=== PATIENT | male | born 1990 | race Caucasian/White ===

== ENCOUNTER 2018-05-17 10:50 | Emergency (ER) | payer SELFPAY ==
[~2018-05-17] VITALS: Ht 180.3 cm; Wt 86.2 kg
[~2018-05-17 10:50] MED LIST: ACHD5005 PO; AZIT-21 PO; WATER (STERILE) FOR INJECTION 10 ML ONE; ZIPRASIDONE 20 MG INJ (GEODON) VIAL IM ONE
--- OUTSIDE RECORDS SUMMARY | 2018-05-17 10:55 | XMS REPORT | Continuity of Care Document ---
Author Author [facility] Organization [facility] Address Unknown Phone Unavailable Allergies Active Description Code Type Severity Reaction Onset Reported/Identified Relationship to Patient Clinical Status Yes No Known Drug Allergies [id number] Drug Allergy Unknown N/A 12/06/2012 Medications There is no data. 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 01/13/2016 ELMA DO K Ot X58.XXXA EXPOSURE TO OTHER SPECIFIED FACTORS, INI 01/13/2016 PONCE WILLS DOA K Ot Y92.69 OTH INDUSTRIAL AND CONSTRUCTION AREA 01/13/2016 ELMA DO K Ot Y93.89 ACTIVITY, OTHER SPECIFIED 01/13/2016 ELMA DO K Ot Y99.8 OTHER EXTERNAL CAUSE STATUS 01/13/2016 ELMA DO K Ot Z23 ENCOUNTER FOR IMMUNIZATION 01/15/2016 ELMA DO K Ot F17.210 NICOTINE DEPENDENCE, CIGARETTES, UNCOMPL 01/15/2016 ELMA DO K Ot H10.89 OTHER CONJUNCTIVITIS 01/15/2016 ELMA DO K Ot H16.8 OTHER KERATITIS 01/15/2016 ELMA DO K Ot H57.8 OTHER SPECIFIED DISORDERS OF EYE AND ADN 01/15/2016 ELMA DO K Ot 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 Results There is no data. Encounters ACCT No. Visit Date/Time Discharge Status Pt. Type Provider Facility Loc./Unit Complaint [id number] 01/13/2016 20:28:00 01/13/2016 21:15:00 DIS Emergency LISA WILLS DO [facility] ER EYE REDNESS/SWELLING/PAIN [id number] 12/06/2012 02:24:00 12/06/2012 03:23:00 DIS Emergency
[2018-05-17] MEDS ORDERED: TETANUS,DIPTH,PERTUSS P/F (BOOSTRIX) 0.5 ML VIAL IM STA (11:07)
[2018-05-17] MEDS ORDERED: LIDOCAINE 2% 20 ML (XYLOCAINE) VIAL INJ STA (11:07)
[2018-05-17] MEDS ORDERED: NS IV 1000 ML 1,000 ML IV ONE (11:07)
[2018-05-17] MEDS ORDERED: LIDOCAINE PF 2% 5 ML (XYLOCAINE) VIAL ONE (11:10)
[2018-05-17] MEDS ORDERED: LIDOCAINE/EPI 2% 1:100,00 (XYLOCAINE) 20 ML VIAL ONE (11:11)
[2018-05-17 11:15] LABS: BASOPHILS # (AUTO) 0.1 10^3/uL (0.0-0.1); BASOPHILS % (AUTO) 1 % (0-10); EOSINOPHILS # (AUTO) 0.1 10^3/uL (0.0-0.3); EOSINOPHILS % (AUTO) 1 % (0-10); HEMATOCRIT 39 % (40-54); HEMOGLOBIN 13.4 G/DL (13.3-17.7); LYMPHOCYTES # (AUTO) 1.2 X 10^3 (1.0-4.0); LYMPHOCYTES % (AUTO) 10 % (12-44); MEAN CORPUSCULAR HEMOGLOBIN 33 PG (25-34); MEAN CORPUSCULAR HGB CONC 34 G/DL (32-36); MEAN CORPUSCULAR VOLUME 96 FL (80-99); MEAN PLATELET VOLUME 9.3 FL (7.4-10.4); MONOCYTES # (AUTO) 0.8 X 10^3 (0.0-1.0); MONOCYTES % (AUTO) 7 % (0-12); NEUTROPHILS # (AUTO) 9.3 X 10^3 (1.8-7.8); NEUTROPHILS % (AUTO) 81 % (42-75); PLATELET COUNT 355 10^3/uL (130-400); RED CELL DISTRIBUTION WIDTH 13.3 % (10.0-14.5); WHITE BLOOD COUNT 11.5 10^3/uL (4.3-11.0)
[2018-05-17] MEDS ORDERED: ZIPRASIDONE 20 MG INJ (GEODON) VIAL IM ONE (11:15)
[2018-05-17 11:24] LABS: BILIRUBIN,URINE NEGATIVE (NEGATIVE); CLARITY,URINE CLEAR; COLOR,URINE YELLOW; GLUCOSE, URINE (UA) NEGATIVE (NEGATIVE); KETONES,URINE NEGATIVE (NEGATIVE); LEUKOCYTE ESTERASE ,URINE NEGATIVE (NEGATIVE); NITRITE,URINE NEGATIVE (NEGATIVE); PH,URINE 6 (5-9); PROTEIN,URINE NEGATIVE (NEGATIVE); UROBILINOGEN,URINE NORMAL (NORMAL)
[2018-05-17 11:33] LABS: ALANINE AMINOTRANSFERASE 35 U/L (0-55); ALBUMIN 4.6 GM/DL (3.2-4.5); ALKALINE PHOSPHATASE 63 U/L (40-136); BILIRUBIN,TOTAL 0.6 MG/DL (0.1-1.0); BUN/CREATININE RATIO 18; CARBON DIOXIDE 24 MMOL/L (21-32); CHLORIDE 105 MMOL/L (98-107); CREATININE SERUM 0.98 MG/DL (0.60-1.30); GFR ESTIMATED > 60; GLUCOSE 93 MG/DL (70-105); POTASSIUM 3.7 MMOL/L (3.6-5.0); SALICYLATE < 5.0 MG/DL (5.0-20.0); SODIUM 139 MMOL/L (135-145); TOTAL PROTEIN 7.3 GM/DL (6.4-8.2)
[2018-05-17 11:34] LABS: ACETAMINOPHEN < 10 UG/ML (10-30)
[2018-05-17 11:35] LABS: BACTERIA,URINE NEGATIVE /HPF; SQUAMOUS EPITHELIAL CELL,UR RARE /HPF
[2018-05-17 11:38] LABS: AMPHETAMINE SCREEN, URINE NEGATIVE (NEGATIVE); BARBITURATE SCREEN URINE NEGATIVE (NEGATIVE); BENZODIAZEPINES SCREEN URINE NEGATIVE (NEGATIVE); CANNABINOID SCREEN, URINE POSITIVE (NEGATIVE); COCAINE SCREEN URINE NEGATIVE (NEGATIVE); METHADONE STAT NEGATIVE (NEGATIVE); METHAMPHETAMINE SCREEN URINE S NEGATIVE (NEGATIVE); OPIATE SCREEN URINE NEGATIVE (NEGATIVE); OXYCODONE STAT NEGATIVE (NEGATIVE); PROPOXYPHENE STAT NEGATIVE (NEGATIVE); TRICYCLIC ANTIDEPRESSANTS SCRE NEGATIVE (NEGATIVE)
--- NOTE | 2018-05-17 11:49 | ED Psychosocial ---
General Chief Complaint: Substance Abuse Stated Complaint: LACERATION TO FOOT Source: patient, police, EMS Exam Limitations: clinical condition History of Present Illness Date Seen by Provider: May 17, 2018 Time Seen by Provider: 11:01 Initial Comments Here with report of laceration to the left foot per police and EMS. Apparently, patient was on a spiritual journey and was practicing a dance per report. He apparently dropped a knife on his foot. It does not appear that this was an attempt to harm himself but he is quite psychotic on arrival and babbling about a lot of different things. He can be redirected. He does not seem to be aggressive towards police or staph but also appears to be quite psychotic. History otherwise difficult to obtain. Patient denies drug use. There was quite a bit of blood in the house and porch. Blood was reportedly spurting from wound per EMS which was reported to them as he was bandaged prior to their arrival. They left the bandage in place. That does appear to be holding the wound and stemming the flow of blood. Timing/Duration: this morning Severity: moderate, severe Associated Symptoms: impaired concentration, other (psychosis) Allergies and Home Medications Allergies Coded Allergies: No Known Drug Allergies (Unverified , 12/06/12) Home Medications Azithromycin 250 Mg Tab, 0 PO Z-JOE Prescribed by: BENY FIGUEROA on 12/06/12 0258 Hydrocodone Bit/Acetaminophen 1 Each Tablet, 1 EACH PO Q4H Prescribed by: LISA WILLS on 01/13/162045 Patient Home Medication List Home Medication List Reviewed: No (unable to determine due to altered mental status) Review of Systems Constitutional: see HPI Psychiatric/Neurological: See HPI, Depressed, Other (acute psychosis) Unable to complete due to psychosis. Past Ucjkurm-Tkpyyp-Ceqkbj Hx Past Med/Social Hx: Reviewed Nursing Past Med/Soc Hx Patient Social History Alcohol Use: Denies Use Recreational Drug Use: No Smoking Status: Current Everyday Smoker Type Used: Cigarettes Recent Hopitalizations: No Past Medical History Surgeries: Yes Abdominal Reproductive Disorders: No Sexually Transmitted Disease: No HIV/AIDS: No Adverse Reaction/Blood Tranf: No Per records as patient is unable to provide history coherently Physical Exam Vital Signs - First Documented 05/17/18 10:50 Temp 98.2 Pulse 119 Resp 27 B/P (MAP) 142/105 (117) Pulse Ox 98 O2 Delivery Room Air Capillary Refill : Height, Weight, BMI Height: 5'11" Weight: 230lbs. oz. 104.229059dx; 24.40 BMI Method:Stated General Appearance: WD/WN, moderate distress HEENT: PERRL/EOMI, pharynx normal Neck: full range of motion, supple Respiratory: lungs clear, normal breath sounds Cardiovascular: regular rate, rhythm, no murmur Gastrointestinal: non tender, soft Extremities: non-tender, other (1.5 similar laceration to the top of the left foot at the bridge. Bleeding noted 1 dressing taken down but controlled with direct pressure easily.) Neurologic/Psychiatric: alert, other (singing and babbling but can be redirected.) Appearance/Memory: disheveled, impaired insight Behavior/Eye Contact: increased rate of speech, compulsive Thoughts/Hallucinations: delusions, flight of ideas Skin: warm/dry, other (laceration as listed above) Lymphatic: no adenopathy Progress/Results/Core Measures Results/Orders Lab Results Laboratory Tests Test 05/17/18 10:50 05/17/18 11:15 Range/Units White Blood Count 11.5 H 4.3-11.0 10^3/uL Red Blood Count 4.07 L 4.35-5.85 10^6/uL Hemoglobin 13.4 13.3-17.7 G/DL Hematocrit 39 L 40-54 % Mean Corpuscular Volume 96 80-99 FL Mean Corpuscular Hemoglobin 33 25-34 PG Mean Corpuscular Hemoglobin Concent 34 32-36 G/DL Red Cell Distribution Width 13.3 10.0-14.5 % Platelet Count 355 130-400 10^3/uL Mean Platelet Volume 9.3 7.4-10.4 FL Neutrophils (%) (Auto) 81 H 42-75 % Lymphocytes (%) (Auto) 10 L 12-44 % Monocytes (%) (Auto) 7 0-12 % Eosinophils (%) (Auto) 1 0-10 % Basophils (%) (Auto) 1 0-10 % Neutrophils # (Auto) 9.3 H 1.8-7.8 X 10^3 Lymphocytes # (Auto) 1.2 1.0-4.0 X 10^3 Monocytes # (Auto) 0.8 0.0-1.0 X 10^3 Eosinophils # (Auto) 0.1 0.0-0.3 10^3/uL Basophils # (Auto) 0.1 0.0-0.1 10^3/uL Sodium Level 139 135-145 MMOL/L Potassium Level 3.7 3.6-5.0 MMOL/L Chloride Level 105 98-107 MMOL/L Carbon Dioxide Level 24 21-32 MMOL/L Anion Gap 10 5-14 MMOL/L Blood Urea Nitrogen 18 7-18 MG/DL Creatinine 0.98 0.60-1.30 MG/DL Estimat Glomerular Filtration Rate > 60 BUN/Creatinine Ratio 18 Glucose Level 93 70-105 MG/DL Calcium Level 10.0 8.5-10.1 MG/DL Corrected Calcium 8.5-10.1 MG/DL Total Bilirubin 0.6 0.1-1.0 MG/DL Aspartate Amino Transf (AST/SGOT) 30 5-34 U/L Alanine Aminotransferase (ALT/SGPT) 35 0-55 U/L Alkaline Phosphatase 63 40-136 U/L Total Protein 7.3 6.4-8.2 GM/DL Albumin 4.6 H 3.2-4.5 GM/DL TSH [place] Testing 1.46 0.35-4.94 UIU/ML Salicylates Level < 5.0 L 5.0-20.0 MG/DL Acetaminophen Level < 10 L 10-30 UG/ML Serum Alcohol < 10 <10 MG/DL Urine Color YELLOW Urine Clarity CLEAR Urine pH 6 5-9 Urine Specific [place] 1.010 L 1.016-1.022 Urine Protein NEGATIVE NEGATIVE Urine Glucose (UA) NEGATIVE NEGATIVE Urine Ketones NEGATIVE NEGATIVE Urine Nitrite NEGATIVE NEGATIVE Urine Bilirubin NEGATIVE NEGATIVE Urine Urobilinogen NORMAL NORMAL MG/DL Urine Leukocyte Esterase NEGATIVE NEGATIVE Urine RBC (Auto) NEGATIVE NEGATIVE Urine RBC NONE /HPF Urine WBC NONE /HPF Urine Squamous Epithelial Cells RARE /HPF Urine Crystals NONE /LPF Urine Bacteria NEGATIVE /HPF Urine Casts NONE /LPF Urine Mucus NEGATIVE /LPF Urine Culture Indicated NO Urine Opiates Screen NEGATIVE NEGATIVE Urine Oxycodone Screen NEGATIVE NEGATIVE Urine Methadone Screen NEGATIVE NEGATIVE Urine Propoxyphene Screen NEGATIVE NEGATIVE Urine Barbiturates Screen NEGATIVE NEGATIVE Ur Tricyclic Antidepressants Screen NEGATIVE NEGATIVE Urine Phencyclidine Screen NEGATIVE NEGATIVE Urine Amphetamines Screen NEGATIVE NEGATIVE Urine Methamphetamines Screen NEGATIVE NEGATIVE Urine Benzodiazepines Screen NEGATIVE NEGATIVE Urine Cocaine Screen NEGATIVE NEGATIVE Urine Cannabinoids Screen POSITIVE H NEGATIVE My Orders Orders - KLEVER,DONNA D MD Ua Culture If Indicated (05/17/18 11:07) Cbc With Automated Diff (05/17/18 11:07) Comprehensive Metabolic Panel (05/17/18 11:07) Alcohol (05/17/18 11:07) Drug Screen Stat (Urine) (05/17/18 11:07) Acetaminophen (05/17/18 11:07) Salicylate (05/17/18 11:07) Ekg Tracing (05/17/18 11:07) Saline Lock/Iv-Start (05/17/18 11:07) Thyroid Analyzer (05/17/18 11:07) Monitor-Rhythm Ecg Trace Only (05/17/18 11:07) Bh Status Checks/Observation Q15M (05/17/18 11:07) Ns Iv 1000 Ml (Sodium Chloride 0.9%) (05/17/18 11:07) Ziprasidone Injection (Geodon Injection) (05/17/18 11:15) Dipht,Pertuss(Acell),Tet Adult (Boostrix (05/17/18 11:07) Lidocaine 2% Injection 20 Ml (Xylocaine (05/17/18 11:07) Lidocaine 2% Pf 5 Ml (Xylocaine 2% Pf) (05/17/18 11:10) Lidocaine/Epi 2% 1:100,000 (Xylocaine/Ep (05/17/18 11:11) Ziprasidone Injection (Geodon Injection) (05/17/18 10:47) Water (Sterile) For Injection (Sterile W (05/17/18 10:48) General/Regular (05/17/18 Lunch) Olanzapine Orally Dissolve Tab (Zyprexa (05/17/18 18:15) Medications Given in ED Current Medications Medications Dose Ordered Sig/Nishant Route Start Time Stop Time Status Last Admin Dose Admin Lidocaine/ Epinephrine 20 ml STK-MED ONCE .ROUTE 05/17/18 11:11 05/17/18 11:17 DC 05/17/18 12:02 1 ML Sterile Water 10 ml @ ud STK-MED ONCE .ROUTE 05/17/18 10:48 05/17/18 13:01 DC 05/17/18 10:57 1.2 MLS/HR Ziprasidone 20 mg ONCE ONCE IM 05/17/18 11:15 05/17/18 11:16 DC 05/17/18 10:57 20 MG Vital Signs/I&O 05/17/18 10:50 Temp 98.2 Pulse 119 Resp 27 B/P (MAP) 142/105 (117) Pulse Ox 98 O2 Delivery Room Air Progress Progress Note : Progress Note Seen and evaluated on arrival by EMS and police. Geodon 20 mg IM ordered which patient accepted. Wound cleaned with copious saline and redressed. We will suture wound as patient calms down. Labs, EKG, IV and normal saline 1 L bolus ordered. We will also check UA. Monitor patient. 1300: We will get [facility] to evaluate patient. 1430: Patient was talking with the mental health counselor and apparently got up and pulled out all of his lines and disconnected himself and walked out of the emergency department and just a blanket despite repeated attempts by staff to encourage him back to the room. Police were called. Patient went to the hallway and out the front door. He attempted to get into a car that was in the cervical parking for the emergency department. He then came back into the hallway and ultimately went to the bathroom until police arrived. He was then encouraged back to the room for continuation of mental health evaluation. Patient is medically cleared for screening. Wound was closed earlier by Alfred Lozada APRN. 1535: Patient is more accepting of care and evaluation. Mental health screener has completed her screen. She thinks patient needs admitted for acute psychosis for which I agree. Patient was offered the choice of voluntary inpatient treatment which she has accepted. He has been to [facility] unit and states that those are good people and he will happily go back there. We will pursue that option. Regular diet ordered. Monitor patient. 1814: I have discussed the case with the nurse practitioner [facility] and she accepts patient for Dr. Carpenter. We will send patient by EMS. To decrease worsening of psychosis during transfer, we will give Zyprexa Zydis 5 mg by mouth now. Patient will go by [facility]. Patient agrees to plan. From wound care would include daily dressing change and antibiotic ointment to wound. May shower but do not soak wound. Sutures out in 10-14 days. Departure Impression Primary Impression: Acute psychosis Additional Impression: Foot laceration Qualified Codes: S91.312A - Laceration without foreign body, left foot, initial encounter Disposition: 02 XFER SHT-TRM HOSP Condition: Stable Transfer Transfer Time: 18:15 Transfer Facility: [place], [place], Dr. Carpenter accepting Method of Transfer: EMS Departure-Patient Inst. Referrals: NO,LOCAL PHYSICIAN (PCP/Family) Primary Care Physician DONNA ERNST MD May 17, 2018 11:49
--- NOTE | 2018-05-17 12:02 | NUR ---
Went into pt room to hand second bag of fluid and pt had pulled out IV. Cancel second bag of fluids per Dr. Ware at this time.
--- NOTE | 2018-05-17 13:13 | NUR ---
Pt still sleeping and resting comfortably in bed. Will continue to monitor.
--- NOTE | 2018-05-17 13:25 | NUR ---
SAVE line called requesting screeing. To return call.
--- NOTE | 2018-05-17 13:35 | NUR ---
Spoke to Mckenzie at [facility] regarding pt. Mckenzie will either call back or come out to screen pt.
--- NOTE | 2018-05-17 13:50 | NUR ---
Mckenzie from [facility] is in room with
--- NOTE | 2018-05-17 14:02 | NUR ---
Pt in room with screener from [facility]. Pt became agitated, began pulling BP cuff and monitors off and ran out of room only wearing a blanket. Constantino Donaldson, and Alfred followed pt into ED waiting room. [employer] called at this time. Pt in waiting room restroom.
--- NOTE | 2018-05-17 14:24 | NUR ---
PPD on scene at this time.
--- NOTE | 2018-05-17 14:30 | NUR ---
Pt returned to room and is cooperative at this time. Screener still speaking with pt.
--- NOTE | 2018-05-17 16:09 | NUR ---
MAT for [facility] regarding bed availability.
--- NOTE | 2018-05-17 16:28 | NUR ---
[facility] has no beds at this time.
--- NOTE | 2018-05-17 16:44 | NUR ---
Pao from [facility] called back. Sending pt's info.
--- NOTE | 2018-05-17 17:30 | NUR ---
Erma from [facility] returned call and there is a bed available. Waiting to hear from [facility] at this time.
[2018-05-17] MEDS ORDERED: OLANZapine 5 MG ODT (ZyPREXA ZYDIS) PO ONE (18:15)
[2018-05-17] MEDS ORDERED: NICOTINE 2 MG GUM (NICORETTE) PO PRN (19:00)
[2018-05-17 19:15] VITALS: BP 119/65
--- NOTE | 2018-05-17 19:15 | NUR ---
Pt gave verbal permission to let brother Juarez know pt was being transfered to [facility].
== END 2018-05-17 19:15 | disposition short-term general hospital (02) ==
LOC: EDUNIT# 10:50 → ER 10:51
DX: S91.312A Laceration without foreign body, left foot, initial encounter (principal); F23 Brief psychotic disorder; F17.210 Nicotine dependence, cigarettes, uncomplicated; Z98.890 Other specified postprocedural states; Z23 Encounter for immunization; W26.0XXA Contact with knife, initial encounter
CPT/HCPCS: 12001; 36415; 80053; 80306; 80320; 80329; 81000; 84443; 85025; 90715; 93005; 93041